=== PATIENT | female | born 1955 | race Caucasian/White ===

== ENCOUNTER 2018-05-23 07:55 | Day surgery (SDC) | payer MEDICARE, OTHER ==
[2018-05-21 13:05] LABS: Basophils # (auto) 0 uL; Basophils % (auto) 0.5 % (0.0-2.0); Eosinophils # (auto) 0.3 uL; Eosinophils % (auto) 3.2 % (0.0-7.0); Hematocrit 35.4 % (36.0-46.0); Hemoglobin 11.9 g/dL (12.2-16.2); Lymphocytes # (auto) 2.3 uL; Lymphocytes % (auto) 27.7 % (10.0-50.0); Mean Corpuscular Hemoglobin 30.3 pg (28.0-32.0); Mean Corpuscular Hgb Conc. 33.5 g/dL (32.0-36.0); Mean Corpuscular Volume 90.3 fL (80.0-100.0); Monocytes # (auto) 0.6 uL; Monocytes % (auto) 6.6 % (0.0-12.0); Neutrophils # (auto) 5.2 uL; Nucleated Red Blood Cells % 0.1 %; Platelet Count (auto) 280 10^3/uL (140-450); Red Blood Cells 3.92 10^6/uL (4.0-5.20); Red Cell Distribution Width 13.4 % (11.8-14.3); Urine Bacteria FEW /hpf (None Seen); Urine Blood Negative /uL (Negative); Urine Hyaline Cast FEW /lpf (0 - 2); Urine Mucus FEW (None Seen); Urine Specific Gravity 1.022 (1.001-1.035); Urine WBC <1 /hpf (0 - 5); White Blood Cell 8.4 10^3/uL (4.4-10.8)
[2018-05-21 13:16] LABS: INR 0.93 (0.9-1.15)
[2018-05-21 13:53] LABS: Potassium 4.1 mmol/L (3.5-5.1)
[2018-05-21 14:06] LABS: BUN/Creatinine Ratio 12.8; Bilirubin, Total 0.6 mg/dL (0.2-1.0); Calcium 8.5 mg/dL (8.5-10.1); Total Protein 7.8 g/dL (6.4-8.2)
[~2018-05-23] VITALS: Ht 175.3 cm; Wt 114.8 kg
[~2018-05-23 07:55] MED LIST: CABE0.5T PO; CLOP75TA28 PO; GLIP5TAB5 PO; HYDR10TA26 PO; METO-158 PO
[2018-05-23] MEDS ORDERED: ceFAZolin 1GM/50ML 50 ML IV ONE (08:24)
[2018-05-23] MEDS ORDERED: KETOROLAC TROMETH 30 MG/ML 1ML VIAL IV ONE (08:45)
[2018-05-23] MEDS ORDERED: METOCLOPRAMIDE HCL 5MG/ml INJ 2ml VIAL IV ONE (08:45)
[2018-05-23] MEDS ORDERED: ONDANSETRON HCL 4 MG/2 ML VIAL ONE (09:00)
[2018-05-23] MEDS ORDERED: SODIUM CHLORIDE LOCK 10 ML ONE (09:00)
[2018-05-23] MEDS ORDERED: fentaNYL CITRATE 100 MCG/2 ML VL IV ONE (09:00)
[2018-05-23] MEDS ORDERED: fentaNYL CITRATE 100 MCG/2 ML VL ONE (09:00)
[2018-05-23] MEDS ORDERED: PROPOFOL 10 MG/ML 20 ML IV ONE (09:00)
[2018-05-23] MEDS ORDERED: MIDAZOLAM HCL 1MG/1ML-2 ML VIAL ONE (09:00)
[2018-05-23] MEDS ORDERED: BUPIVACAINE 0.75% INJ 10ML MPV SDV IJ ONE (09:19)
[2018-05-23] MEDS ORDERED: methylPREDNISolone ACETATE 80 MG/ML VL ONE (10:49)
[2018-05-23] MEDS ORDERED: ALBUTEROL SULF 2.5 MG/0.5ML(0.5%) NEB SOLN NEB ONE ×2 (11:15→11:30)
[2018-05-23] MEDS ORDERED: IPRATROPIUM BROM 0.5 MG/2.5ML INH SOL NEB ONE (11:15)
[2018-05-23] MEDS ORDERED: IPRATROPIUM BROM 0.5 MG/2.5ML INH SOL ONE (11:16)
[2018-05-23] MEDS ORDERED: ALBUTEROL SULF 2.5 MG/0.5ML(0.5%) NEB SOLN ONE (11:16)
[2018-05-23 11:38] VITALS: BP 158/93
== END 2018-05-23 12:08 | disposition home or self-care (01) ==
LOC: SUR 07:55
PROVIDERS: ATTEND Podiatrist Foot & Ankle Surgery
DX: G57.82 Other specified mononeuropathies of left lower limb (principal); E66.9 Obesity, unspecified; E11.9 Type 2 diabetes mellitus without complications; I10 Essential (primary) hypertension; I25.10 Atherosclerotic heart disease of native coronary artery without angina pectoris; I25.2 Old myocardial infarction; J40 Bronchitis, not specified as acute or chronic; D64.9 Anemia, unspecified; E66.01 Morbid (severe) obesity due to excess calories; Z88.8 Allergy status to other drugs, medicaments and biological substances; Z68.37 Body mass index [BMI] 37.0-37.9, adult; Z87.891 Personal history of nicotine dependence; Z90.49 Acquired absence of other specified parts of digestive tract; Z98.890 Other specified postprocedural states; Z88.1 Allergy status to other antibiotic agents; Z85.3 Personal history of malignant neoplasm of breast; Z95.5 Presence of coronary angioplasty implant and graft
CPT/HCPCS: 36415; 80053; 81001; 82962; 85025; 85610; 85730; 94640; J0690; J2250; J2405; J2704; J3490

== ENCOUNTER → 2020-01-01 | Day surgery (SDC) | payer MEDICARE, OTHER ==
[2019-12-30 10:51] LABS: Urine WBC None Seen /hpf (0 - 5)
[2019-12-30 10:56] LABS: Basophils # (auto) 0 10 ^3/uL (0-0.2); Basophils % (auto) 0.4 % (0.0-2.0); Eosinophils # (auto) 0.1 10 ^3/uL (0-0.8); Eosinophils % (auto) 1.7 % (0.0-7.0); Hemoglobin 12.2 g/dL (12.2-16.2); Lymphocytes % (auto) 30.2 % (10.0-50.0); Mean Corpuscular Hemoglobin 29.2 pg (28.0-32.0); Mean Corpuscular Hgb Conc. 32.2 g/dL (32.0-36.0); Mean Corpuscular Volume 90.5 fL (80.0-100.0); Monocytes # (auto) 0.5 10 ^3/uL (0-1.3); Monocytes % (auto) 7.2 % (0.0-12.0); Neutrophils % (auto) 60.5 % (37.0-80.0); Platelet Count (auto) 286 10^3/uL (140-450); Red Cell Distribution Width 14.4 % (11.8-14.3); White Blood Cell 6.6 10^3/uL (4.4-10.8)
[2019-12-30 10:58] LABS: Urine Bacteria FEW /hpf (None Seen); Urine Blood Negative /uL (Negative); Urine Specific Gravity 1.015 (1.001-1.035)
[2019-12-30 11:13] LABS: INR 0.96 (0.9-1.15); Partial Thromboplastin Time 28.5 sec (23.64-32.05)
[2019-12-30 11:16] LABS: Albumin 3.3 g/dL (3.4-5.0); Calcium 9.2 mg/dL (8.5-10.1)
[2019-12-30 11:20] LABS: BUN/Creatinine Ratio 13.7; Bilirubin, Total 0.7 mg/dL (0.2-1.0); Total Protein 8.2 g/dL (6.4-8.2)
[~2020-01-01] VITALS: Ht 175.3 cm; Wt 113.4 kg
[~2020-01-01] MED LIST changes: +DexAMETHasone SOD PHOS 10MG/1ML VIAL INJ ONE; +HYDR-4296 PO; -HYDR10TA26 PO; +LABETALOL HCL 5 MG/ML 4ML SYRINGE IV PRN; +MEPERIDINE HCL (25 MG/ML) 1ML VIAL ONE; +MIDAZOLAM HCL 1MG/1ML-2 ML VIAL IV PRN; +MIDAZOLAM HCL 1MG/1ML-2 ML VIAL ONE; +MORPHINE SULFATE 4 MG/ML SYR/VIAL IV PRN; +NEOMYCIN-BACITRACIN-POLYM 15GM TOP OINT TOP ONE; +NIFE1TAB31 PO; +ONDANSETRON HCL 4 MG/2 ML VIAL IV PRN; +POTA-220 PO; +PROPOFOL 10 MG/ML 20 ML IV ONE; +ROPIVACAINE 0.5% (5MG/ML) 20ML AMPULE IJ ONE; +ceFAZolin 1GM/50ML 50 ML IV ONE; +ePHEDrine SULFATE 50 MG/ML AMP IV PRN; +fentaNYL CITRATE 100 MCG/2 ML VL ONE; +hydrALAZINE HCL 20 MG/ML VL IV PRN; +methylPREDNISolone ACETATE 80 MG/ML VL ONE
[2020-01-01 09:18] VITALS: BP 136/72
== END | disposition home or self-care (01) ==
LOC: SUR 06:19
PROVIDERS: ATTEND Podiatrist Foot & Ankle Surgery
DX: M72.2 Plantar fascial fibromatosis (principal); Z11.59 Encounter for screening for other viral diseases; E66.9 Obesity, unspecified; E11.9 Type 2 diabetes mellitus without complications; Z91.041 Radiographic dye allergy status; Z88.8 Allergy status to other drugs, medicaments and biological substances; Z98.890 Other specified postprocedural states
CPT/HCPCS: 29893; 36415; 80053; 81001; 85025; 85610; 85730; J0690; J1040; J1100; J2175; J2250; J2704; J2795; J3010; L3260; U0003

== ENCOUNTER → 2021-03-24 | Day surgery (SDC) | payer MEDICARE, OTHER ==
[2021-03-23 13:14] LABS: Urine WBC None Seen /hpf (0 - 5)
[2021-03-23 13:22] LABS: Basophils # (auto) 0 10 ^3/uL (0-0.2); Basophils % (auto) 0.7 % (0.0-2.0); Eosinophils # (auto) 0.1 10 ^3/uL (0-0.8); Eosinophils % (auto) 0.7 % (0.0-7.0); Hematocrit 35.6 % (36.0-46.0); Lymphocytes # (auto) 2.3 10 ^3/uL (0.4-5.4); Lymphocytes % (auto) 31.2 % (10.0-50.0); Mean Corpuscular Hemoglobin 30.3 pg (28.0-32.0); Mean Corpuscular Hgb Conc. 33.8 g/dL (32.0-36.0); Mean Corpuscular Volume 89.6 fL (80.0-100.0); Monocytes # (auto) 0.5 10 ^3/uL (0-1.3); Monocytes % (auto) 6.2 % (0.0-12.0); Neutrophils # (auto) 4.5 10 ^3/uL (1.6-8.6); Neutrophils % (auto) 61.2 % (37.0-80.0); Red Blood Cells 3.97 10^6/uL (4.0-5.20); Red Cell Distribution Width 13.7 % (11.8-14.3); White Blood Cell 7.4 10^3/uL (4.4-10.8)
[2021-03-23 13:28] LABS: Urine Bacteria FEW /hpf (None Seen); Urine Blood Negative /uL (Negative); Urine Mucus FEW (None Seen)
[2021-03-23 13:43] LABS: Albumin 3.3 g/dL (3.4-5.0); Potassium 3.5 mmol/L (3.5-5.1)
[2021-03-23 13:52] LABS: BUN/Creatinine Ratio 14.3; Bilirubin, Total 0.6 mg/dL (0.2-1.0); Total Protein 8.4 g/dL (6.4-8.2)
[~2021-03-24] MED LIST changes: +ACCU-CHEK COMFORT CURVE STRIP VI ONE; -DexAMETHasone SOD PHOS 10MG/1ML VIAL INJ ONE; +HYDROmorphone HCL 2 MG/ML VL IV PRN; -LABETALOL HCL 5 MG/ML 4ML SYRINGE IV PRN; -MEPERIDINE HCL (25 MG/ML) 1ML VIAL ONE; +METOCLOPRAMIDE HCL 5MG/ml INJ 2ml VIAL IV PRN; -MIDAZOLAM HCL 1MG/1ML-2 ML VIAL IV PRN; -MIDAZOLAM HCL 1MG/1ML-2 ML VIAL ONE; +MIDAZOLAM HCL 2MG/2ML 2ml VIAL (1mg/ml) ONE; -NEOMYCIN-BACITRACIN-POLYM 15GM TOP OINT TOP ONE; -ONDANSETRON HCL 4 MG/2 ML VIAL IV PRN; +ONDANSETRON HCL 4 MG/2 ML VIAL ONE; -ROPIVACAINE 0.5% (5MG/ML) 20ML AMPULE IJ ONE; +SODIUM CHLORIDE LOCK 10 ML ONE; +ceFAZolin 1GM VL ONE; -ePHEDrine SULFATE 50 MG/ML AMP IV PRN; -hydrALAZINE HCL 20 MG/ML VL IV PRN; -methylPREDNISolone ACETATE 80 MG/ML VL ONE
[2021-03-24 11:45] VITALS: BP 168/76
== END | disposition home or self-care (01) ==
LOC: SUR 06:01
PROVIDERS: ATTEND Podiatrist Foot & Ankle Surgery
DX: M72.2 Plantar fascial fibromatosis (principal); E11.9 Type 2 diabetes mellitus without complications; I10 Essential (primary) hypertension; D64.9 Anemia, unspecified; E66.01 Morbid (severe) obesity due to excess calories; Z79.899 Other long term (current) drug therapy; Z88.8 Allergy status to other drugs, medicaments and biological substances; Z68.36 Body mass index [BMI] 36.0-36.9, adult; Z86.73 Personal history of transient ischemic attack (TIA), and cerebral infarction without residual deficits; Z87.891 Personal history of nicotine dependence; Z91.018 Allergy to other foods; Z91.041 Radiographic dye allergy status
CPT/HCPCS: 27630; 36415; 80053; 81001; 85025; J0690; J2250; J2405; J2704; J2765; J3010; U0003

== ENCOUNTER → 2021-11-17 | Day surgery (SDC) | payer MEDICARE, BC ==
[2021-11-16 12:11] LABS: Basophils # (auto) 0 10 ^3/uL (0-0.2); Basophils % (auto) 0.6 % (0.0-2.0); Eosinophils # (auto) 0.1 10 ^3/uL (0-0.8); Eosinophils % (auto) 1.5 % (0.0-7.0); Hematocrit 33.3 % (36.0-46.0); Hemoglobin 11.2 g/dL (12.2-16.2); Lymphocytes # (auto) 1.9 10 ^3/uL (0.4-5.4); Lymphocytes % (auto) 26.4 % (10.0-50.0); Mean Corpuscular Hemoglobin 30.2 pg (28.0-32.0); Mean Corpuscular Hgb Conc. 33.6 g/dL (32.0-36.0); Mean Corpuscular Volume 89.8 fL (80.0-100.0); Monocytes # (auto) 0.5 10 ^3/uL (0-1.3); Monocytes % (auto) 6.6 % (0.0-12.0); Neutrophils # (auto) 4.7 10 ^3/uL (1.6-8.6); Neutrophils % (auto) 64.9 % (37.0-80.0); Nucleated Red Blood Cells % 0.2 %; Red Blood Cells 3.71 10^6/uL (4.0-5.20); White Blood Cell 7.2 10^3/uL (4.4-10.8)
[2021-11-16 12:27] LABS: INR 0.98 (0.9-1.15); Partial Thromboplastin Time 25.2 sec (23.6-33.0)
[2021-11-16 12:43] LABS: Albumin 3.1 g/dL (3.4-5.0); Calcium 9.3 mg/dL (8.5-10.1); Potassium 3.8 mmol/L (3.5-5.1)
[2021-11-16 12:48] LABS: BUN/Creatinine Ratio 14.3; Bilirubin, Total 0.6 mg/dL (0.2-1.0); Total Protein 7.7 g/dL (6.4-8.2)
[~2021-11-17] VITALS: Ht 175.3 cm; Wt 108.9 kg
[~2021-11-17] MED LIST changes: +ALBUAER3 IN; +ASPI1TAB20 PO; +ATOR20TA PO; +BLAC1CAP4 PO; +CHOL25CH3 PO; +DexAMETHasone SOD PHOS 10MG/1ML VIAL INJ ONE; -HYDROmorphone HCL 2 MG/ML VL IV PRN; +HYDROmorphone HCL 2 MG/ML VL/or syr IV PRN; +KETOROLAC TROMETH 30 MG/ML 1ML VIAL IV ONE; +LABETALOL HCL 5 MG/ML 4ML SYRINGE IV ONE; +MAGN400T40 PO; +MISC1LOZ3 MT; +OMEG1CAP68 PO; +ROCURONIUM 10MG/ML 10ML VIAL IV ONE; +ROPIVACAINE 0.5% (5MG/ML) 20ML AMPULE IJ ONE; +SPECCAP4 OR; +SUCCINYLCHOLINE CHLORIDE 20 MG/ML 10ML VIAL IV ONE; +[UNRECOGNIZED DRUG - CODE] OR; -ceFAZolin 1GM VL ONE; +ceFAZolin 1GM/50ML 100 ML IV ONE; -ceFAZolin 1GM/50ML 50 ML IV ONE; +methylPREDNISolone ACETATE 80 MG/ML VL ONE
[2021-11-17 09:28] VITALS: BP 150/57
== END | disposition home or self-care (01) ==
LOC: SUR 06:05
PROVIDERS: ATTEND Podiatrist Foot & Ankle Surgery
DX: M72.2 Plantar fascial fibromatosis (principal); L90.5 Scar conditions and fibrosis of skin; I10 Essential (primary) hypertension; E11.42 Type 2 diabetes mellitus with diabetic polyneuropathy; E66.01 Morbid (severe) obesity due to excess calories; Z68.36 Body mass index [BMI] 36.0-36.9, adult; Z98.891 History of uterine scar from previous surgery; Z98.890 Other specified postprocedural states; Z79.899 Other long term (current) drug therapy; Z91.041 Radiographic dye allergy status; Z20.822 Contact with and (suspected) exposure to COVID-19; Z87.891 Personal history of nicotine dependence
CPT/HCPCS: 14040; 28060; 36415; 80053; 81025; 82962; 85025; 85610; 85730; 88305; J0330; J0690; J1040; J1100; J2250; J2405; J2704; J2795; J3010; J3490; U0003

== ENCOUNTER 2022-08-04 15:31 | Inpatient (IN) | payer MEDICARE, BC ==
[~2022-08-04] VITALS: Ht 175.3 cm; Wt 117.5 kg
[~2022-08-04 15:31] MED LIST changes: -ACCU-CHEK COMFORT CURVE STRIP VI ONE; -DexAMETHasone SOD PHOS 10MG/1ML VIAL INJ ONE; -HYDROmorphone HCL 2 MG/ML VL/or syr IV PRN; -KETOROLAC TROMETH 30 MG/ML 1ML VIAL IV ONE; -LABETALOL HCL 5 MG/ML 4ML SYRINGE IV ONE; -METOCLOPRAMIDE HCL 5MG/ml INJ 2ml VIAL IV PRN; -MIDAZOLAM HCL 2MG/2ML 2ml VIAL (1mg/ml) ONE; -MORPHINE SULFATE 4 MG/ML SYR/VIAL IV PRN; -ONDANSETRON HCL 4 MG/2 ML VIAL ONE; -PROPOFOL 10 MG/ML 20 ML IV ONE; -ROCURONIUM 10MG/ML 10ML VIAL IV ONE; -ROPIVACAINE 0.5% (5MG/ML) 20ML AMPULE IJ ONE; -SODIUM CHLORIDE LOCK 10 ML ONE; -SUCCINYLCHOLINE CHLORIDE 20 MG/ML 10ML VIAL IV ONE; -ceFAZolin 1GM/50ML 100 ML IV ONE; -fentaNYL CITRATE 100 MCG/2 ML VL ONE; -methylPREDNISolone ACETATE 80 MG/ML VL ONE
[2022-08-04 16:38] LABS: Basophils # (auto) 0 10 ^3/uL (0-0.2); Basophils % (auto) 0.7 % (0.0-2.0); Eosinophils # (auto) 0.1 10 ^3/uL (0-0.8); Eosinophils % (auto) 1.1 % (0.0-7.0); Hematocrit 32.6 % (36.0-46.0); Lymphocytes # (auto) 1.7 10 ^3/uL (0.4-5.4); Lymphocytes % (auto) 24.5 % (10.0-50.0); Mean Corpuscular Hgb Conc. 33.8 g/dL (32.0-36.0); Mean Corpuscular Volume 91.5 fL (80.0-100.0); Monocytes # (auto) 0.5 10 ^3/uL (0-1.3); Monocytes % (auto) 6.9 % (0.0-12.0); Neutrophils # (auto) 4.7 10 ^3/uL (1.6-8.6); Neutrophils % (auto) 66.8 % (37.0-80.0); Red Blood Cells 3.56 10^6/uL (4.0-5.20)
[2022-08-04 16:54] LABS: INR 0.91 (0.9-1.15); Partial Thromboplastin Time 20.5 sec (24.6-33.4)
[2022-08-04 17:01] LABS: Calcium 9.1 mg/dL (8.5-10.1); Potassium 4.1 mmol/L (3.5-5.1)
[2022-08-04 17:03] LABS: BUN/Creatinine Ratio 18.7
[2022-08-04 17:06] LABS: Bilirubin, Total 0.4 mg/dL (0.2-1.0); Total Protein 7.2 g/dL (6.4-8.2)
[2022-08-04] MEDS ORDERED: levoFLOXacin 500MG 100 ML IV ONE (17:15)
[2022-08-04] MEDS ORDERED: KETOROLAC TROMETH 30 MG/ML 1ML VIAL IV ONE (17:45)
[2022-08-04] MEDS ORDERED: HYDROcodone-ACET 5/325MG TAB PO PRN (18:00)
[2022-08-04] MEDS ORDERED: CLINDAMYCIN 600MG IV 50 ML IV ONE (18:00)
[2022-08-04] MEDS ORDERED: MORPHINE SULFATE INJ 2 MG/ml SYRG IV PRN (18:00)
[2022-08-04] MEDS ORDERED: NITROGLYCERIN 0.4 MG SL TAB SL PRN (18:00)
[2022-08-04] MEDS ORDERED: DEXTROSE (50%) 50ML SYRG IV PRN (18:30)
[2022-08-04 18:39] LABS: Cholesterol 146 mg/dL (< 200); HDL Cholesterol 42 mg/dL (40-59); LDL Cholesterol 101 mg/dL (< 100); Triglycerides 139 mg/dL (< 150)
[2022-08-04] MEDS: SODIUM CHLORIDE 0.9% 1,000 ML IV SCH (18:40)
[2022-08-04] MEDS ORDERED: IOHEXOL 350 MG/ML 100ML IJ ONE (18:44)
[2022-08-04 18:50] LABS: Urine Blood Negative /uL (Negative); Urine Specific Gravity 1.029 (1.001-1.035)
[2022-08-04] MEDS: ACCU-CHEK COMFORT CURVE STRIP VI SCH (22:30)
[2022-08-04] MEDS: InsuLIN REG 1unit/0.01ml Soln (100units/ml) SC SCH (22:31)
[2022-08-04] MEDS: hydrALAZINE HCL 25 MG TAB PO SCH (22:39)
[2022-08-04] MEDS: METOPROLOL TARTRATE 50 MG TAB PO SCH (22:39)
[2022-08-04] MEDS: ASCORBIC ACID 500 MG TAB PO SCH (22:39)
[2022-08-04] MEDS: CLINDAMYCIN 600MG IV 50 ML IV SCH (22:45)
[2022-08-05 01:41] VITALS: BP 125/34
[2022-08-05] MEDS: ACETAMINOPHEN 325 MG TAB PO PRN ×3 (02:02→21:59)
[2022-08-05] MEDS ORDERED: FURO1TAB33 PO (03:28)
[2022-08-05] MEDS ORDERED: MULT-1018 PO (03:28)
[2022-08-05 05:00] VITALS: BP 131/42
[2022-08-05] MEDS: CLINDAMYCIN 600MG IV 50 ML IV SCH ×3 (05:31→21:49)
[2022-08-05] MEDS: hydrALAZINE HCL 25 MG TAB PO SCH ×3 (05:31→21:48)
[2022-08-05 05:57] LABS: Albumin 2.6 g/dL (3.4-5.0); Basophils # (auto) 0 10 ^3/uL (0-0.2); Basophils % (auto) 0.5 % (0.0-2.0); Calcium 8.7 mg/dL (8.5-10.1); Eosinophils # (auto) 0.1 10 ^3/uL (0-0.8); Eosinophils % (auto) 1.9 % (0.0-7.0); Hematocrit 30.7 % (36.0-46.0); Hemoglobin 10.3 g/dL (12.2-16.2); Lymphocytes % (auto) 28.7 % (10.0-50.0); Mean Corpuscular Hemoglobin 30.9 pg (28.0-32.0); Mean Corpuscular Hgb Conc. 33.6 g/dL (32.0-36.0); Mean Corpuscular Volume 92.1 fL (80.0-100.0); Monocytes # (auto) 0.5 10 ^3/uL (0-1.3); Monocytes % (auto) 7.4 % (0.0-12.0); Neutrophils # (auto) 4.2 10 ^3/uL (1.6-8.6); Neutrophils % (auto) 61.5 % (37.0-80.0); Nucleated Red Blood Cells % 0.1 %; Potassium 3.6 mmol/L (3.5-5.1); Red Blood Cells 3.33 10^6/uL (4.0-5.20); Red Cell Distribution Width 14.1 % (11.8-14.3); White Blood Cell 6.8 10^3/uL (4.4-10.8)
[2022-08-05 06:01] LABS: Bilirubin, Total 0.5 mg/dL (0.2-1.0); Total Protein 6.3 g/dL (6.4-8.2)
[2022-08-05] MEDS: ACCU-CHEK COMFORT CURVE STRIP VI SCH ×4 (06:32→21:51)
[2022-08-05] MEDS: InsuLIN REG 1unit/0.01ml Soln (100units/ml) SC SCH ×4 (06:32→21:51)
[2022-08-05 09:00] VITALS: BP 127/61
[2022-08-05] MEDS: ENOXAPARIN SOD 40 MG/0.4 ML SYRINGE SC SCH (09:12)
[2022-08-05] MEDS: POTASSIUM CHL 20 Meq TABLET PO SCH (09:13)
[2022-08-05] MEDS: ASPirin-EC 81 mg tab PO SCH (09:13)
[2022-08-05] MEDS: ATORVASTATIN 20 MG TAB PO SCH (09:13)
[2022-08-05] MEDS: CLOPIDOGREL BISULFATE 75 MG TAB PO SCH (09:13)
[2022-08-05] MEDS: ASCORBIC ACID 500 MG TAB PO SCH ×2 (09:14→21:47)
[2022-08-05] MEDS: ZINC SULFATE 220mg CAP or TAB PO SCH (09:14)
[2022-08-05] MEDS: NIFEdipine ER 30 MG TAB PO SCH (09:14)
[2022-08-05] MEDS: METOPROLOL TARTRATE 50 MG TAB PO SCH ×2 (09:14→21:48)
[2022-08-05] MEDS: MULTIPLE VITAMIN TAB PO SCH (09:15)
[2022-08-05] MEDS: SODIUM CHLORIDE 0.9% 1,000 ML IV SCH (09:16)
[2022-08-05 17:00] VITALS: BP 126/63
[2022-08-05 22:00] VITALS: BP 164/71
[2022-08-06] MEDS: SODIUM CHLORIDE 0.9% 1,000 ML IV SCH ×2 (03:20→20:00)
[2022-08-06 05:00] VITALS: BP 126/45
[2022-08-06] MEDS: CLINDAMYCIN 600MG IV 50 ML IV SCH ×3 (05:32→22:08)
[2022-08-06] MEDS: hydrALAZINE HCL 25 MG TAB PO SCH ×3 (05:34→22:09)
[2022-08-06] MEDS: ACCU-CHEK COMFORT CURVE STRIP VI SCH ×4 (06:00→22:00)
[2022-08-06] MEDS: InsuLIN REG 1unit/0.01ml Soln (100units/ml) SC SCH ×4 (06:00→22:00)
[2022-08-06 09:00] VITALS: BP 109/49
[2022-08-06] MEDS: ENOXAPARIN SOD 40 MG/0.4 ML SYRINGE SC SCH (10:34)
[2022-08-06] MEDS: MULTIPLE VITAMIN TAB PO SCH (10:34)
[2022-08-06] MEDS: ASPirin-EC 81 mg tab PO SCH (10:35)
[2022-08-06] MEDS: CLOPIDOGREL BISULFATE 75 MG TAB PO SCH (10:35)
[2022-08-06] MEDS: METOPROLOL TARTRATE 50 MG TAB PO SCH ×2 (10:35→22:08)
[2022-08-06] MEDS: POTASSIUM CHL 20 Meq TABLET PO SCH (10:35)
[2022-08-06] MEDS: ZINC SULFATE 220mg CAP or TAB PO SCH (10:35)
[2022-08-06] MEDS: ASCORBIC ACID 500 MG TAB PO SCH ×2 (10:36→22:08)
[2022-08-06] MEDS: NIFEdipine ER 30 MG TAB PO SCH (10:36)
[2022-08-06] MEDS: ATORVASTATIN 20 MG TAB PO SCH (10:36)
[2022-08-06] MEDS: ACETAMINOPHEN 325 MG TAB PO PRN ×2 (10:37→22:08)
[2022-08-06 13:00] VITALS: BP 134/52
[2022-08-06 17:00] VITALS: BP 106/52
[2022-08-06 22:00] VITALS: BP 147/65
[2022-08-07] MEDS: ACETAMINOPHEN 325 MG TAB PO PRN ×3 (04:01→22:29)
[2022-08-07 05:00] VITALS: BP 128/52
[2022-08-07] MEDS: CLINDAMYCIN 600MG IV 50 ML IV SCH ×3 (06:05→22:27)
[2022-08-07] MEDS: ACCU-CHEK COMFORT CURVE STRIP VI SCH ×4 (06:06→22:00)
[2022-08-07] MEDS: InsuLIN REG 1unit/0.01ml Soln (100units/ml) SC SCH ×4 (06:06→22:41)
[2022-08-07] MEDS: hydrALAZINE HCL 25 MG TAB PO SCH ×3 (06:36→22:27)
[2022-08-07 09:00] VITALS: BP 153/72
[2022-08-07] MEDS: ENOXAPARIN SOD 40 MG/0.4 ML SYRINGE SC SCH (10:50)
[2022-08-07] MEDS: CLOPIDOGREL BISULFATE 75 MG TAB PO SCH (10:51)
[2022-08-07] MEDS: ATORVASTATIN 20 MG TAB PO SCH (10:51)
[2022-08-07] MEDS: ASPirin-EC 81 mg tab PO SCH (10:51)
[2022-08-07] MEDS: POTASSIUM CHL 20 Meq TABLET PO SCH (10:51)
[2022-08-07] MEDS: ZINC SULFATE 220mg CAP or TAB PO SCH (10:51)
[2022-08-07] MEDS: METOPROLOL TARTRATE 50 MG TAB PO SCH ×2 (10:53→22:28)
[2022-08-07] MEDS: NIFEdipine ER 30 MG TAB PO SCH (10:54)
[2022-08-07] MEDS: ASCORBIC ACID 500 MG TAB PO SCH ×2 (10:55→22:28)
[2022-08-07] MEDS: MULTIPLE VITAMIN TAB PO SCH (10:55)
[2022-08-07 13:00] VITALS: BP 117/66
[2022-08-07] MEDS: SODIUM CHLORIDE 0.9% 1,000 ML IV SCH (13:35)
[2022-08-07 17:00] VITALS: BP 129/55
[2022-08-07 22:00] VITALS: BP 145/78
[2022-08-08 05:00] VITALS: BP 133/53
[2022-08-08] MEDS: SODIUM CHLORIDE 0.9% 1,000 ML IV SCH ×2 (05:52→08:49)
[2022-08-08] MEDS: CLINDAMYCIN 600MG IV 50 ML IV SCH ×2 (05:53→14:11)
[2022-08-08] MEDS: ACCU-CHEK COMFORT CURVE STRIP VI SCH ×3 (05:53→18:07)
[2022-08-08] MEDS: hydrALAZINE HCL 25 MG TAB PO SCH ×2 (05:53→14:10)
[2022-08-08] MEDS: InsuLIN REG 1unit/0.01ml Soln (100units/ml) SC SCH ×3 (06:05→18:10)
[2022-08-08] MEDS: ACETAMINOPHEN 325 MG TAB PO PRN ×2 (06:06→14:10)
[2022-08-08 08:00] VITALS: BP 151/61
[2022-08-08] MEDS: ATORVASTATIN 20 MG TAB PO SCH (08:46)
[2022-08-08] MEDS: MULTIPLE VITAMIN TAB PO SCH (08:46)
[2022-08-08] MEDS: ASCORBIC ACID 500 MG TAB PO SCH (08:46)
[2022-08-08] MEDS: ASPirin-EC 81 mg tab PO SCH (08:46)
[2022-08-08] MEDS: POTASSIUM CHL 20 Meq TABLET PO SCH (08:46)
[2022-08-08] MEDS: ZINC SULFATE 220mg CAP or TAB PO SCH (08:46)
[2022-08-08] MEDS: NIFEdipine ER 30 MG TAB PO SCH (08:47)
[2022-08-08] MEDS: METOPROLOL TARTRATE 50 MG TAB PO SCH (08:47)
[2022-08-08 09:18] VITALS: BP 151/61
[2022-08-08] MEDS: CLOPIDOGREL BISULFATE 75 MG TAB PO SCH (11:00)
[2022-08-08] MEDS: ENOXAPARIN SOD 40 MG/0.4 ML SYRINGE SC SCH (11:00)
[2022-08-08 12:07] VITALS: BP 136/60
[2022-08-08] MEDS ORDERED: CEPH500C PO (12:26)
[2022-08-08 15:43] VITALS: BP 136/60
[2022-08-08 16:54] VITALS: BP 117/47
== END 2022-08-08 19:00 | disposition home or self-care (01) | DRG 603 ==
LOC: ER 15:31 → TELE 18:01 → TELE-WESTW 22:08
PROVIDERS: ADMIT Nurse Practitioner Family; ATTEND Family Medicine
DX: L03.115 Cellulitis of right lower limb (principal); E66.01 Morbid (severe) obesity due to excess calories; E11.9 Type 2 diabetes mellitus without complications; E78.00 Pure hypercholesterolemia, unspecified; I10 Essential (primary) hypertension; Z20.822 Contact with and (suspected) exposure to COVID-19; Z88.8 Allergy status to other drugs, medicaments and biological substances; I25.2 Old myocardial infarction; Z80.0 Family history of malignant neoplasm of digestive organs; Z86.718 Personal history of other venous thrombosis and embolism; Z98.61 Coronary angioplasty status; Z68.38 Body mass index [BMI] 38.0-38.9, adult
CPT/HCPCS: 36415; 71045; 73718; 78582; 80053; 80061; 81003; 82962; 83036; 83880; 84443; 84484; 85025; 85379; 85610; 85652; 85730; 87040; 87426; 93005; 93306; 93926; 93971; 96365; 96375; G0378; J1815; J1885; J1956; J3490